=== PATIENT | female | born 1985 | race Caucasian/White ===

== ENCOUNTER 2018-12-09 16:22 | Emergency (ER) | payer OTHER ==
[~2018-12-09] VITALS: Ht 152.4 cm; Wt 49.9 kg
[2018-12-09] MEDS ORDERED: IBUPROFEN 600 MG TAB PO ONE (17:00)
[2018-12-09 17:13] LABS: HEMOGLOBIN 12.4 g/dL (12.0-16.0); LYMPHOCYTES # (AUTO) 0.9 (1.0-3.2); LYMPHOCYTES % 23.3 % (18.0-39.1); MEAN CORPUSCULAR HGB CONC 34.4 g/dL (31-35); MONOCYTES # (AUTO) 0.8 (0.2-0.8); MONOCYTES % 19.6 % (4.4-11.3); NEUTROPHILS # (AUTO) 2.2 (2.1-6.9); NEUTROPHILS % 56.8 % (38.7-80.0); PLATELET COUNT 164 x10e3/uL (140-360); RED BLOOD COUNT 4.14 x10e6/uL (3.6-5.1); RED CELL DISTRIBUTION WIDTH 12.8 % (11.7-14.4)
[2018-12-09 17:29] LABS: ALANINE AMINOTRANSFERASE 27 IU/L (0-55); ALBUMIN 3.2 g/dL (3.5-5.0); ALBUMIN/GLOBULIN RATIO 0.9 (0.8-2.0); ALKALINE PHOSPHATASE 55 IU/L (40-150); ANION GAP 14.4 mmol/L (8-16); BLOOD UREA NITROGEN 6 mg/dL (7-26); BUN/CREATININE RATIO 7 (6-25); CARBON DIOXIDE 25 mmol/L (22-29); CHLORIDE 100 mmol/L (98-107); CREATININE, SERUM 0.82 mg/dL (0.57-1.11); EST GLOMERULAR FILTRATION RATE > 60 ML/MIN (60-); GLUCOSE 95 mg/dL (74-118); POTASSIUM 4.4 mmol/L (3.5-5.1); SODIUM 135 mmol/L (136-145)
[2018-12-09] MEDS ORDERED: SODIUM CHLORIDE 0.9% 1000ML 1,000 ML IV STA ×2 (17:29)
[2018-12-09] MEDS ORDERED: CEFTRIAXONE SOD 2 GM/NS 100 ML 100 ML IV SCH (17:30)
[2018-12-09] MEDS ORDERED: MUPIROCIN 2% OINT 22 GM TUBE TOP ONE (17:30)
[2018-12-09] MEDS ORDERED: ACETAMINOPHEN 1000 MG/100 ML IV STA (17:43)
[2018-12-09] MEDS ORDERED: ACETAMINOPHEN 1000 MG/100 ML 100 ML IV ONE (17:48)
[2018-12-09 18:46] LABS: BILIRUBIN,URINE NEGATIVE (NEGATIVE); CLARITY,URINE CLEAR (CLEAR); COLOR,URINE YELLOW (YELLOW); KETONES,URINE NEGATIVE (NEGATIVE); LEUKOCYTE ESTERASE ,URINE NEGATIVE (NEGATIVE); NITRITE,URINE NEGATIVE (NEGATIVE); PROTEIN,URINE DIPSTICK NEGATIVE (NEGATIVE); URINE UROBILINOGEN 0.2 mg/dL (0.2 - 1)
[2018-12-09 18:48] LABS: PREGNANCY TEST, URINE NEGATIVE (NEGATIVE)
[2018-12-09 19:18] LABS: EPITHELIAL CELLS,URINE FEW /LPF
[2018-12-09] MEDS ORDERED: AZITHROMYCIN 500MG/NS 250 ML 250 ML IV ONE ×2 (19:30→20:15)
--- NOTE | 2018-12-09 19:37 | Diagnostic Imaging Report ---
EXAMINATION: CHEST SINGLE (PORTABLE) INDICATION: Pain. COMPARISON: None FINDINGS: TUBES and LINES: None. LUNGS: Lungs are well inflated. Lungs are clear. There is no evidence of pneumonia or pulmonary edema. PLEURA: No pleural effusion or pneumothorax. HEART AND MEDIASTINUM: The cardiomediastinal silhouette is unremarkable. BONES AND SOFT TISSUES: No acute osseous lesion. Punctate density projected in the soft tissues of the medial right arm may represent overlying artifact. UPPER ABDOMEN: No free air under the diaphragm. IMPRESSION: No acute thoracic abnormality. Signed by: Dr. Allie aYng M.D. on 12/09/2018 7:34 PM
[2018-12-09] MEDS ORDERED: SODIUM CHLORIDE 0.9% 1000ML 1,000 ML IV SCH (19:45)
--- NOTE | 2018-12-09 19:48 | Diagnostic Imaging Report ---
Examination:CT SOFT TISSUE NECK WITH CONTRAST History: Swollen left neck; lymph nodes. Comparison studies: None Technique: Axial images from the skull base to the thoracic inlet Coronal and sagittal reformatted images. Dose modulation, iterative reconstruction, and/or weight based adjustment of the mA/kV was utilized to reduce the radiation dose to as low as reasonably achievable. Intravenous contrast: 100mL of Isovue 370. Findings: Soft tissues: No abnormalities. Aerodigestive tract: No abnormality. Lymph nodes: There are many left supra and infrahyoid homogenous adenopathy. The largest measures 1.6 cm in left IIa. Vessels: Arteries and veins are patent. Thyroid gland: Normal in size and homogeneous. Submandibular glands: Normal in size and homogeneous. Parotid glands: Normal in size and homogeneous. Orbits: No abnormalities. Paranasal sinuses: Clear. Temporal bones: No abnormalities. Skull base and facial bones: Intact. Cervical spine: No disc bulge or herniation or foraminal or canal stenosis. Visualized lung apices: No abnormalities. IMPRESSION: Left supra and infrahyoid adenopathy, concerning for malignancy either metastatic from unknown primary or primary malignancy such as lymphoma. No enhancing abnormality with the pharynx, larynx or oral cavity. Signed by: Dr. Heather Wells M.D. on 12/09/2018 7:44 PM
[2018-12-09 21:35] VITALS: BP 108/66
[2018-12-09] MEDS ORDERED: SODIUM CHLORIDE 0.9% 50ML 50 ML ONE (22:07)
[2018-12-09] MEDS ORDERED: IOPAMIDOL 370 MG/ML 200 ML INFUS..BTL INJ ONE (22:07)
== END 2018-12-09 21:42 | disposition home or self-care (01) ==
LOC: ER 16:22
DX: R50.9 Fever, unspecified (principal); I88.8 Other nonspecific lymphadenitis
CPT/HCPCS: 36415; 70491; 71045; 80053; 81001; 81025; 85025; 87040; 87086; 99284; J0131; J0456; J0696; J7030; Q9967